=== PATIENT | male | born 1955 | race Caucasian/White ===

== ENCOUNTER → 2023-04-15 09:25 | Outpatient (REF) | payer MEDICARE, OTHER, SELFPAY | LOC: DHCBS HW 09:25 | PROVIDERS: ATTENDING PHYSICIAN Internal Medicine Cardiovascular Disease; FAMILY PHYSICIAN Family Medicine | DX: I49.9 Cardiac arrhythmia, unspecified (principal) | CPT/HCPCS: 93306 ==

== ENCOUNTER → 2023-05-19 07:01 | Outpatient (REF) | payer MEDICARE, OTHER, SELFPAY | LOC: RAD 07:01 | PROVIDERS: ATTENDING PHYSICIAN Specialist; FAMILY PHYSICIAN Family Medicine | DX: Z87.442 Personal history of urinary calculi (principal) | CPT/HCPCS: 74176 ==

== ENCOUNTER → 2023-06-03 07:28 | Outpatient (REF) | payer MEDICARE, OTHER, SELFPAY ==
[2023-06-03 10:30] LABS: ALT (SGPT) 32 U/L (0-50); AST (SGOT) 23 U/L (17-59); Alkaline Phosphatase 127 U/L (38-126); Blood Urea Nitrogen 26 mg/dl (9-20); Calcium 9.7 mg/dl (8.4-10.2); Carbon Dioxide 23 mmol/L (22-30); Chloride 100 mmol/L (98-107); Glucose 255 mg/dl (70-99); Sodium 135 mmol/L (135-145); Total Bilirubin 0.6 mg/dl (0.2-1.3); Total Protein 6.6 g/dl (6.3-8.2); eGFR > 60.00
[2023-06-03 11:39] LABS: Glycohemoglobin (HgbA1c) 8.8 % (4.0-5.6)
== END ==
LOC: REG 07:28
PROVIDERS: ATTENDING PHYSICIAN Internal Medicine Endocrinology, Diabetes & Metabolism; FAMILY PHYSICIAN Family Medicine
DX: E11.65 Type 2 diabetes mellitus with hyperglycemia (principal)
CPT/HCPCS: 36415; 80053; 83036

== ENCOUNTER → 2023-09-08 06:50 | Outpatient (REF) | payer MEDICARE, OTHER, SELFPAY ==
[2023-09-08 07:46] LABS: ALT (SGPT) 32 U/L (0-50); AST (SGOT) 25 U/L (17-59); Albumin 4.1 g/dl (3.5-5.0); Alkaline Phosphatase 101 U/L (38-126); Blood Urea Nitrogen 30 mg/dl (9-20); Calcium 9.9 mg/dl (8.4-10.2); Carbon Dioxide 29 mmol/L (22-30); Chloride 106 mmol/L (98-107); Glucose 114 mg/dl (70-99); Potassium 4.2 mmol/L (3.5-5.1); Sodium 142 mmol/L (135-145); Total Bilirubin 0.7 mg/dl (0.2-1.3); Total Protein 6.6 g/dl (6.3-8.2); eGFR > 60.00
[2023-09-08 10:24] LABS: Glycohemoglobin (HgbA1c) 6.6 % (4.0-5.6)
== END ==
LOC: REG 06:50
PROVIDERS: ATTENDING PHYSICIAN Internal Medicine Endocrinology, Diabetes & Metabolism; FAMILY PHYSICIAN Family Medicine
DX: E11.65 Type 2 diabetes mellitus with hyperglycemia (principal)
CPT/HCPCS: 36415; 80053; 83036

== ENCOUNTER → 2024-02-15 06:33 | Outpatient (REF) | payer MEDICARE, OTHER, SELFPAY ==
[2024-02-15 08:06] LABS: ALT (SGPT) 41 U/L (0-50); AST (SGOT) 27 U/L (17-59); Albumin 4.3 g/dl (3.5-5.0); Alkaline Phosphatase 96 U/L (38-126); Blood Urea Nitrogen 27 mg/dl (9-20); Calcium 9.3 mg/dl (8.4-10.2); Carbon Dioxide 31 mmol/L (22-30); Chloride 102 mmol/L (98-107); Glucose 125 mg/dl (70-99); HDL Cholesterol 35 mg/dl; LDL Cholesterol, Calculated 70 mg/dl; Potassium 4.1 mmol/L (3.5-5.1); Sodium 138 mmol/L (135-145); Total Bilirubin 0.6 mg/dl (0.2-1.3); Total Cholesterol 137 mg/dl (50-199); Total Protein 6.7 g/dl (6.3-8.2); Triglyceride 163 mg/dl (10-149); Very Low Density Lipoprotein 32 mg/dl (0-30); eGFR > 60.00
[2024-02-15 08:48] LABS: Microalbumin, Random Urine 1.6 mg/dl (0.6-1.7); Microalbumin/creatinine Ratio 7.2 mg/g
[2024-02-15 10:13] LABS: Glycohemoglobin (HgbA1c) 7.4 % (4.0-5.6)
== END ==
LOC: REG 06:33
PROVIDERS: ATTENDING PHYSICIAN Internal Medicine Endocrinology, Diabetes & Metabolism; FAMILY PHYSICIAN Family Medicine
DX: E11.65 Type 2 diabetes mellitus with hyperglycemia (principal)
CPT/HCPCS: 36415; 80053; 80061; 82043; 82570; 83036

== ENCOUNTER 2024-06-02 15:49 | Emergency (ER) | payer MEDICARE, OTHER, SELFPAY ==
[2024-06-02 15:51] VITALS: BP 145/78
[2024-06-02 16:15] LABS: Urine Albumin Negative (Neg - Trace); Urine Bilirubin Negative (Negative); Urine Character Clear (Clear); Urine Color Yellow; Urine Glucose Negative (Negative); Urine Ketone Negative (Negative); Urine Leukocyte Negative (Negative); Urine Nitrite Negative (Negative); Urine Occult Blood 4+ (Negative); Urine Urobilinogen Negative (Neg - 1+)
[2024-06-02 16:16] LABS: % Eosinophils 2.1 % (0-6); % Immature Granulocytes 0.4 % (0-0.5); % Lymphocytes 21.2 % (20.5-51.1); % Monocytes 8.9 % (1.7-9.3); % Neutrophils 66.4 % (42.2-75.2); Absolute Basophils 0.1 10^3/uL (0-0.2); Absolute Eosinophils 0.2 10^3/uL (0-0.7); Absolute Lymphocytes 1.7 10^3/uL (1.2-3.4); Absolute Monocytes 0.7 10^3/uL (0.1-0.6); Absolute Neutrophils 5.4 10^3/uL (1.4-6.5); Hematocrit 44.9 % (39.0-52.0); Hemoglobin 14.9 g/dL (13.0-18.0); Mean Corp Hgb Conc. 33.2 g/dL (33.0-37.0); Mean Corpuscular Hgb 29.7 pg (27.0-31.0); Mean Corpuscular Volume 89.4 fL (80.0-94.0); Mean Platelet Volume 10.1 fL (7.4-10.4); Nucleated Red Blood Cells % 0 % (-); Platelet Count 214 10^3/uL (130-400); Red Blood Cell Count 5.02 10^6/uL (4.70-6.10); White Blood Cell Count 8.1 10^3/uL (4.8-10.8)
[2024-06-02 16:30] LABS: ALT (SGPT) 36 U/L (0-50); AST (SGOT) 25 U/L (17-59); Albumin 4.2 g/dl (3.5-5.0); Alkaline Phosphatase 133 U/L (38-126); Blood Urea Nitrogen 19 mg/dl (9-20); Calcium 10.4 mg/dl (8.4-10.2); Carbon Dioxide 31 mmol/L (22-30); Chloride 104 mmol/L (98-107); Glucose 158 mg/dl (70-99); Potassium 4.3 mmol/L (3.5-5.1); Sodium 141 mmol/L (135-145); Total Bilirubin 0.6 mg/dl (0.2-1.3); Total Protein 6.9 g/dl (6.3-8.2); eGFR > 60.00
[2024-06-02 17:06] LABS: Urine Red Blood Cell 30-40 /HPF (0-2); Urine Squamous Cell 0-2 /LPF (Few); Urine White Cell 0-2 /HPF (0-5)
--- NOTE | 2024-06-02 17:37 | ED.GENMED ---
History of Present Illness
General
Chief Complaint: Flank Pain
Time Seen by Provider: 06/02/24 17:13
History of Present Illness
History of Present Illness:
Patient is a 68-year-old male with past medical history of chronic back pain, sleep apnea, hypertension, GERD, history of cholecystectomy, diabetes, and history of prior kidney stones, here today for evaluation of approximately 1 day of left-sided
flank pain. Pain comes in waves and is actually improving overall. No gross hematuria. He has noted nausea but denies vomiting. No fevers. No urinary symptoms. He reports symptoms today feel consistent with his prior episodes of kidney stones.
He has previously required surgery for a 10 mm stone. Additionally, the patient does report falling 3 weeks ago along his right side and has since had mild vague right-sided abdominal/rib pain. This pain has been improving overall.
Past History
Past History
ED Past Medical History: GERD, HTN, NIDDM and Other (Kidney stones)
ED Past Surgical History: Cholecystectomy, Orthopedic (Steroid injections back) and Urological
Social History
Tobacco: Non-smoker
Alcohol: None
Drug: None
Personal:
Living: with family
Employment: Employed
Family History
Family History: Hypertension
Review of Systems
Review of Systems
All Other Systems: ROS reviewed and negative except as documented in HPI and ROS
Phy Exam
Physical Exam
Physical Exam:
GENERAL: Alert , in no apparent distress
EYE: pupils equal and reactive
NECK: Supple, no significant adenopathy.
ENT: o/p clr, mmm.
CARDIAC: Regular rate and rhythm .
LUNGS: Clear breath sounds bilaterally, no acute respiratory distress, no wheezes/rales/rhonchi
ABDOMEN: Soft, without focal tenderness, no r/g, no cvat
NEUROLOGICAL: Alert and oriented, no focal neuro deficits
SKIN: Warm and dry, skin intact.
MUSCULOSKELETAL: No edema, well perfused.
PSYCH: Normal and appropriate interaction.
Course
Orders/Labs/Results
Orders:
Orders
06/02/24 16:01
Complete Blood Count/With Diff Urgent
Comprehensive Metabolic Panel Urgent
Urine Culture Reflexed from UA [Urinalysis Reflex To Culture] Urgent
Date Specimen was Collected: 06/02/24
Time Specimen was Collected: 15:55
Urine Microscopic Reflex Cult Urgent
06/02/24 17:37
CT Abd/pel Without Iv Or Oral Urgent
Comment:
Reason For Exam: left flank pain, hx of stones, hematuria
06/02/24 19:19
Ketorolac [Toradol] 15 mg IM NOW STA
Tamsulosin [Flomax] 0.4 mg PO NOW STA
Abnormal Lab Results
06/02/24
16:01
Absolute Monos (auto) 0.7 H 10^3/uL
(0.1-0.6)
Carbon Dioxide 31 H mmol/L
(22-30)
Glucose 158 H mg/dl
(70-99)
Calcium 10.4 H mg/dl
(8.4-10.2)
Alkaline Phosphatase 133 H U/L
(38-126)
Ur Occult Blood Reflex 4+ A
(Negative)
Urine RBC 30-40 A /HPF
(0-2)
06/02/24 16:01
06/02/24 16:01
Vital Signs
Initial and Last Documented VS:
Initial Vital Signs
Temp Pulse Resp BP Pulse Ox
97.8 F 68 20 145/78 98
06/02/24 15:51 06/02/24 15:51 06/02/24 15:51 06/02/24 15:51 06/02/24 15:51
Last Documented Vital Signs
Temp Pulse Resp BP Pulse Ox
97.8 F 68 20 145/78 98
06/02/24 15:51 06/02/24 15:51 06/02/24 15:51 06/02/24 15:51 06/02/24 15:51
MDM/Problems Addressed
Differential Diagnosis Includes:
Patient is a 68-year-old male with past medical history of chronic back pain, sleep apnea, hypertension, GERD, history of cholecystectomy, diabetes, and history of prior kidney stones, here today for evaluation of approximately 1 day of left-sided
flank pain. Overall, patient appears very well. Vitals remarkable for an elevated blood pressure. Physical examination described above. Screening labs were obtained in triage which reveal no significant acute abnormalities. Urinalysis with
microscopic hematuria. Findings consistent with a suspected left-sided ureteral stone. We will obtain a CT scan without IV contrast. Patient declines wanting pain medication at this time. Will monitor.
06/02/2024 1920: CT scan of the abdomen and pelvis reveals 2 stones within the proximal left ureter measuring 5 mm superiorly and 3 mm more inferiorly. There is mild left-sided hydronephrosis. There are additional nonobstructing stones within the
kidneys bilaterally. Patient made aware of findings. He appears well overall and is relatively pain-free. He is able to tolerate p.o. No vomiting. He appears suitable for discharge with medical expulsion therapy and close follow-up with
urology. We will initiate Flomax. Will provide a prescription for ibuprofen. Recommend supportive measures and close follow-up. Return precautions given. All questions answered. Stable for discharge.
*Critical Care Note
Total Time (30-74mins, 75-104mins- exclusive of procedures): Not Applicable
ED Attending Note
-
Portions of this chart may have been created with voice recognition software.� Occasional wrong word or��sound alike� substitutions may have occurred due to the inherent limitations of voice recognition software.
Discharge Plan
Departure
Patient Disposition: Home (Routine Discharge)
Date of Disposition: 06/02/24
Time of Disposition: 19:21
Patient with high blood pressure during this ER visit?: Yes
Condition: Good
Discharge Problem:
Calculus of proximal left ureter
Instructions: Kidney Stones (DC), How to Strain Your Urine
Prescriptions:
New
tamsulosin [Flomax] 0.4 mg capsule
0.4 mg PO DAILY 30 Days Qty: 30 0RF
ibuprofen 600 mg tablet
600 mg PO Q6H PRN (Reason: Pain) 7 Days Qty: 20 0RF
Rx Instructions:
Take needed. With food.
No Action
felodipine 2.5 MG tablet extended release 24 hr
2.5 mg PO DAILY
lisinopril 20 MG tablet
20 mg PO DAILY
aspirin 81 MG tablet,delayed release (DR/EC)
81 mg PO DAILY
metformin 500 MG tablet
1,000 mg PO BID
fexofenadine 180 MG tablet
180 mg PO DAILY
glimepiride 2 MG tablet
2 mg PO BID
hydrochlorothiazide 25 MG tablet
25 mg PO DAILY
potassium citrate 10 MEQ tablet extended release
20 meq PO BID
lidocaine [Lidoderm] 5 % adhesive patch,medicated
1 patch topical DAILY Qty: 15 0RF
docusate sodium [Colace] 100 mg capsule
100 mg PO BID Qty: 20 0RF
vitamin B complex [B Complex-Vitamin B12] Tablet
1 tab PO DAILY
Referrals:
Julian Glover MD [Active] - Follow up in 1 week
Richard Plummer MD [Family Provider] - Follow up in 5-7 days
Activity Restrictions/Additional Instructions:
You were seen today for evaluation of left-sided flank pain. Your evaluation reveals evidence of 2 kidney stones along the left side. The stones are relatively small to medium in size and may be able to be passed on their own. Drink plenty of
fluids. Take the prescribed Flomax and ibuprofen as directed as needed. You may also take [id number] Tylenol for pain. Use the urine strainer as directed. Follow-up with a urologist within the next 1 to 2 weeks for close reevaluation.
Return for any new, worsening, or concerning symptoms.
Interventions
Interventions:
*General Assessment Last Done: 06/02/24 15:51
HE-Pkizii-Rqdcqvnfaz Assessment Last Done: 06/02/24 18:40
Discharge Date and Time
Print Language: KHMER
[2024-06-02] MEDS: FLOMAX 0.4 MG PO (19:32)
[2024-06-02] MEDS: TORADOL 15 MG IM (19:32)
== END 2024-06-02 19:40 | disposition home or self-care (01) ==
LOC: EMR 15:49
PROVIDERS: Student in an Organized Health Care Education/Training Program; EMERGENCY PHYSICIAN Emergency Medicine; FAMILY PHYSICIAN Family Medicine
DX: N13.2 Hydronephrosis with renal and ureteral calculous obstruction (principal); G47.30 Sleep apnea, unspecified; I10 Essential (primary) hypertension; K21.9 Gastro-esophageal reflux disease without esophagitis; E11.9 Type 2 diabetes mellitus without complications; Z82.49 Family history of ischemic heart disease and other diseases of the circulatory system; Z87.442 Personal history of urinary calculi; Z90.49 Acquired absence of other specified parts of digestive tract
CPT/HCPCS: 99284; 96372; 74176; 80053; 81003; 81015; 85025

== ENCOUNTER → 2024-06-21 06:37 | Outpatient (REF) | payer MEDICARE, OTHER, SELFPAY ==
[2024-06-21 07:53] LABS: ALT (SGPT) 28 U/L (0-50); AST (SGOT) 21 U/L (17-59); Albumin 3.8 g/dl (3.5-5.0); Alkaline Phosphatase 102 U/L (38-126); Blood Urea Nitrogen 26 mg/dl (9-20); Carbon Dioxide 30 mmol/L (22-30); Chloride 106 mmol/L (98-107); Glucose 115 mg/dl (70-99); Potassium 4.5 mmol/L (3.5-5.1); Sodium 143 mmol/L (135-145); Total Bilirubin 0.7 mg/dl (0.2-1.3); Total Protein 6.2 g/dl (6.3-8.2); eGFR > 60.00
[2024-06-21 08:34] LABS: Glycohemoglobin (HgbA1c) 7.8 % (4.0-5.6)
== END ==
LOC: REG 06:37
PROVIDERS: ATTENDING PHYSICIAN Internal Medicine Endocrinology, Diabetes & Metabolism; FAMILY PHYSICIAN Family Medicine
DX: E11.65 Type 2 diabetes mellitus with hyperglycemia (principal)
CPT/HCPCS: 36415; 80053; 83036

== ENCOUNTER → 2024-10-19 06:28 | Outpatient (REF) | payer MEDICARE, OTHER, SELFPAY ==
[2024-10-19 08:07] LABS: Hematocrit 42.3 % (39.0-52.0); Hemoglobin 14.0 g/dL (13.0-18.0); Mean Corp Hgb Conc. 33.1 g/dL (33.0-37.0); Mean Corpuscular Volume 90.6 fL (80.0-94.0); Nucleated Red Blood Cells % 0 % (-); Platelet Count 202 10^3/uL (130-400); Red Cell Dist. Width 13.7 % (11.5-14.5)
[2024-10-19 08:14] LABS: Microalb - Urine Creatinine 108.100 mg/dl
[2024-10-19 08:16] LABS: Microalbumin, Random Urine 1.0 mg/dl (0.6-1.7)
[2024-10-19 08:19] LABS: ALT (SGPT) 29 U/L (0-50); AST (SGOT) 24 U/L (17-59); Albumin 4.3 g/dl (3.5-5.0); Alkaline Phosphatase 103 U/L (38-126); Blood Urea Nitrogen 32 mg/dl (9-20); Calcium 11.1 mg/dl (8.4-10.2); Carbon Dioxide 32 mmol/L (22-30); Chloride 104 mmol/L (98-107); Glucose 93 mg/dl (70-99); HDL Cholesterol 30 mg/dl; LDL Cholesterol, Calculated 57 mg/dl; Potassium 4.1 mmol/L (3.5-5.1); Sodium 141 mmol/L (135-145); Total Protein 6.9 g/dl (6.3-8.2); Very Low Density Lipoprotein 35 mg/dl (0-30); eGFR > 60.00
[2024-10-19 08:49] LABS: PSA, Total - Screen 3.22 ng/ml (0.0-4.0)
[2024-10-19 09:59] LABS: Glycohemoglobin (HgbA1c) 7.3 % (4.0-5.6)
== END ==
LOC: REG 06:28
PROVIDERS: ATTENDING PHYSICIAN Internal Medicine Endocrinology, Diabetes & Metabolism; FAMILY PHYSICIAN Family Medicine
DX: E11.69 Type 2 diabetes mellitus with other specified complication (principal); I10 Essential (primary) hypertension; E78.2 Mixed hyperlipidemia; G47.30 Sleep apnea, unspecified; N40.0 Benign prostatic hyperplasia without lower urinary tract symptoms; Z00.01 Encounter for general adult medical examination with abnormal findings; E11.65 Type 2 diabetes mellitus with hyperglycemia; Z12.5 Encounter for screening for malignant neoplasm of prostate
CPT/HCPCS: 36415; 80053; 80061; 82043; 82570; 83036; 85025; G0103

== ENCOUNTER → 2025-02-16 06:37 | Outpatient (REF) | payer MEDICARE, OTHER, SELFPAY ==
[2025-02-16 08:27] LABS: ALT (SGPT) 40 U/L (0-50); AST (SGOT) 24 U/L (17-59); Albumin 4.4 g/dl (3.5-5.0); Alkaline Phosphatase 124 U/L (38-126); Blood Urea Nitrogen 25 mg/dl (9-20); Calcium 10.5 mg/dl (8.4-10.2); Carbon Dioxide 31 mmol/L (22-30); Chloride 102 mmol/L (98-107); Glucose 172 mg/dl (70-99); Potassium 4.2 mmol/L (3.5-5.1); Sodium 139 mmol/L (135-145); Total Protein 7.1 g/dl (6.3-8.2); eGFR > 60.00
[2025-02-16 09:37] LABS: Glycohemoglobin (HgbA1c) 8.0 % (4.0-5.9)
== END ==
LOC: REG 06:37
PROVIDERS: ATTENDING PHYSICIAN Internal Medicine Endocrinology, Diabetes & Metabolism
DX: E11.65 Type 2 diabetes mellitus with hyperglycemia (principal)
CPT/HCPCS: 36415; 80053; 83036